=== PATIENT | male | born 1955 | race Hispanic/Latino ===

== ENCOUNTER 2018-11-24 13:26 | Emergency (ER) | payer OTHER, SELFPAY ==
[2018-11-24] MEDS ORDERED: CYCLOBENZAPRINE 10 MG TAB ONE (14:45)
[2018-11-24] MEDS ORDERED: TRAMADOL HCL 50 MG TAB ONE (14:45)
[2018-11-24] MEDS ORDERED: IBUPROFEN 200 MG TAB PO ONE (14:46)
[2018-11-24] MEDS ORDERED: IBUPROFEN 400 MG TAB ONE (14:46)
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
[2018-11-24 15:46] LABS: Urine Blood NEGATIVE (NEG); Urine Glucose 2+ (NEG); Urine Protein NEGATIVE (NEG); Urine pH 5.5 (5.0-7.0)
== END 2018-11-24 15:37 | disposition home or self-care (01) ==
LOC: ER 13:26
DX: M54.5 Low back pain (principal)
CPT/HCPCS: 81003; 99284